=== PATIENT | female | born 1985 | race Caucasian/White ===

== ENCOUNTER 2020-01-08 04:54 | Outpatient (CLI) | payer OTHER ==
[2020-01-08 16:44] LABS: SARS-CoV-2 MS2 Positive; SARS-CoV-2 N Gene Negative; SARS-CoV-2 S Gene Negative; SARS-CoV-2 orf1ab Negative
== END 2020-01-08 04:55 | disposition home or self-care (01) ==
LOC: ERS 04:54
PROVIDERS: ATTEND Obstetrics & Gynecology
DX: Z01.812 Encounter for preprocedural laboratory examination (principal); Z11.59 Encounter for screening for other viral diseases
CPT/HCPCS: 87635; U0003

== ENCOUNTER 2020-01-10 05:30 | Inpatient (IN) | payer OTHER ==
[2020-01-10 06:45] VITALS: BMI 29.2
[2020-01-10] MEDS: Lactated Ringer's 1,000 ML IV SCH ×3 (06:45→12:25)
[2020-01-10] MEDS ORDERED: Promethazine HCl 25 MG/ML VIAL IM PRN ×2 (07:17→11:29)
[2020-01-10] MEDS ORDERED: Ondansetron PF 4 MG/2 ML Vial IVP PRN ×2 (07:17→11:29)
[2020-01-10] MEDS ORDERED: NS w/ Oxytocin 10 units 500 ML IVPB SCH (07:30)
[2020-01-10] MEDS ORDERED: Acetaminophen 500 MG TAB PO PRN (07:38)
[2020-01-10] MEDS ORDERED: Butorphanol Tartrate 1 MG/ML VIAL SLOW IVP PRN (07:38)
[2020-01-10 07:57] LABS: Hemoglobin 10.7 g/dL (12.0-16.0); Mean Corpuscular HGB CONC 33.4 g/dL (32.0-36.0); Mean Corpuscular Hemoglobin 30.8 pg (27.0-31.0); Mean Platelet Volume 9.2 fL (7.4-10.4); Platelet Count 221 thou/uL (130-400); RBC Distribution Width 11.5 % (11.5-14.5); Red Blood Cell (RBC) Count 3.47 mill/uL (4.20-5.40); White Blood Cell (WBC) Count 8.8 thou/uL (4.8-10.8)
[2020-01-10 08:38] LABS: HBSAg Index 0.14 S/CO (0-0.99); Hep B Surf Ag Non-Reactive S/CO (NonReactive); Syphilis Antibody Nonreactive (Nonreactive); Syphilis Antibody Index 0.02 S/CO (<1.00 Non-Reactive)
[2020-01-10] MEDS ORDERED: Lidocaine 2% MPF 10 ML AMP (For Epidural Use) ONE (09:38)
[2020-01-10] MEDS ORDERED: Bupivacaine/Epinephrine 0.25% 30 ML VIAL ONE (09:38)
[2020-01-10] MEDS ORDERED: Fentanyl 4 mcg/Bup 0.1% Cadd 100 ML ONE (10:13)
[2020-01-10] MEDS ORDERED: EPHEDRINE 25 MG/5 ML SYRINGE SLOW IVP PRN (11:29)
[2020-01-10] MEDS ORDERED: Lactated Ringer's 500 ML IV PRN (11:29)
[2020-01-10] MEDS ORDERED: Acetaminophen 325 MG TAB PO PRN (11:29)
[2020-01-10] MEDS ORDERED: Naloxone HCl 0.4 mg/ml Vial IVP PRN ×2 (11:29)
[2020-01-10] MEDS ORDERED: diphenhydrAMINE 50 MG/ML VIAL IVP PRN (11:29)
[2020-01-10] MEDS ORDERED: Communication Order-Pharmacy FS SCH (11:30)
[2020-01-10] MEDS ORDERED: Fentanyl 4 mcg/Bupivacaine 0.1% Cassette 100 ML EPIDURAL SCH (11:30)
--- NOTE | 2020-01-10 11:47 | PDOC.EVN ---
Event Note - Event Note Event Note: Asked to AROM by Dr. Harris. Comfortable with epidural. SVE /0 vtx. AROM is clear. FHTs reassuring. Plan; Cont. induction.
[2020-01-10] MEDS ORDERED: Lidocaine 1% (PF) 30 ML VIAL ONE (11:50)
[2020-01-10] MEDS ORDERED: NS / Oxytocin 40 units/1000ml 1,000 ML ONE (11:51)
[2020-01-10] MEDS ORDERED: Preparation H Ointment 28 GM TUBE PR PRN (15:16)
[2020-01-10] MEDS ORDERED: Benzocaine-Menthol 82.5 ML CAN TOP PRN (15:16)
[2020-01-10] MEDS ORDERED: traMADol HCl 50 MG TAB PO PRN (15:16)
[2020-01-10] MEDS ORDERED: Lanolin Ointment 7 GM TUBE TOP PRN (15:16)
[2020-01-10] MEDS ORDERED: hydrALAZINE 20 MG/ML VIAL SLOW IVP PRN (15:16)
[2020-01-10] MEDS ORDERED: Misoprostol 200 MCG TAB VAG PRN (15:16)
[2020-01-10] MEDS ORDERED: Bisacodyl 10 MG SUPP PR PRN (15:16)
[2020-01-10] MEDS ORDERED: Milk Of Magnesia 30 ML UDCUP PO PRN (15:16)
--- NOTE | 2020-01-10 15:18 | PDOC.OPDEL ---
OB Operative/Delivery Note Delivery Dr/Surgeon: Kimberly Pre-Delivery Diagnosis: elective induction Procedure/Post Delivery Dx: spontaneous vaginal delivery Weeks gestation: 39 Anesthesia: epidural - Findings A - 1 min: 8 - 5 min: 9 - Additional Findings/Plan Placenta delivered: spontaneous Repaired Obstetrical Laceration: none Estimated blood loss: 200ml
[2020-01-10] MEDS ORDERED: NS / Oxytocin 40 units/1000ml 1,000 ML IV SCH (15:30)
[2020-01-10] MEDS: Ferrous Sulfate 325 MG TAB PO SCH (18:15)
[2020-01-10] MEDS: Docusate Calcium (SURFAK) 240 MG CAP PO SCH (22:41)
[2020-01-10] MEDS: Ibuprofen 800 MG TAB PO SCH (22:41)
[2020-01-11] MEDS: Ibuprofen 800 MG TAB PO SCH ×2 (05:42→14:34)
[2020-01-11] MEDS: Ferrous Sulfate 325 MG TAB PO SCH ×2 (06:58→18:07)
--- NOTE | 2020-01-11 07:50 | PDOC.PP ---
Post Progress Note Post Day #: 1 Subjective: Feels well. Vital Signs (12 hours) Temp Pulse Resp BP 01/11/20 05:40 98.3 F 77 16 128/65 01/11/20 00:35 98.4 F 78 16 129/70 Weight Weight 170 lb Result Diagrams: 01/10/20 07:47 Additional Labs: Post Labs Blood Type A POSITIVE 01/10/20 07:47 Hep Bs Antigen Non-Reactive S/CO (NonReactive) 01/10/20 07:47 - Assessment/Plan Post day 1 ..Doing well. D/c today. F/u 6 weeks.
[2020-01-11] MEDS: Docusate Calcium (SURFAK) 240 MG CAP PO SCH (08:04)
[2020-01-11] MEDS ORDERED: Prenatal Vitamin 1 TAB PO SCH (09:00)
[2020-01-11 12:35] VITALS: BP 121/75; TEMP 99
[2020-01-11] MEDS ORDERED: Adacel (T-DAP) 0.5 ML SYRINGE IM ONE (15:16)
== END 2020-01-11 18:30 | disposition home or self-care (01) | DRG 807 ==
LOC: L&D 05:42 → 3SE 18:03
PROVIDERS: ADMIT Obstetrics & Gynecology; ATTEND Obstetrics & Gynecology
PROC: 10E0XZZ Delivery of Products of Conception, External Approach (ICD-10-PCS; principal; 2020-01-11)
PROC: 3E033VJ Introduction of Other Hormone into Peripheral Vein, Percutaneous Approach (ICD-10-PCS; 2020-01-11)
PROC: 10907ZC Drainage of Amniotic Fluid, Therapeutic from Products of Conception, Via Natural or Artificial Opening (ICD-10-PCS; 2020-01-11)
DX: O80 Encounter for full-term uncomplicated delivery (principal); Z37.0 Single live birth; Z3A.38 38 weeks gestation of pregnancy
CPT/HCPCS: 36415; 51702; 85027; 86780; 86850; 86900; 86901; 87340; J2001; J2590